=== PATIENT | female | born 2005 | race Two or more races ===

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

== ENCOUNTER 2025-05-08 18:26 | Emergency (ER) | payer OTHER ==
[~2025-05-08] VITALS: Ht 162.6 cm; Wt 50.8 kg
[2025-05-08 18:48] VITALS: TEMP 98.3
[2025-05-08] MEDS ORDERED: LIDOCAINE 5% (PATCH) 1 EA PATCH TP ONE (19:19)
[2025-05-08] MEDS ORDERED: IBUPROFEN 600 MG TABLET ONE (19:19)
[2025-05-08] MEDS ORDERED: METHOCARBAMOL (500MG) 500 MG TABLET ONE (19:20)
[2025-05-08] MEDS: IBUPROFEN 600 MG TABLET PO ONE (19:25)
[2025-05-08] MEDS: METHOCARBAMOL (500MG) 500 MG TABLET PO ONE (19:25)
[2025-05-08] MEDS: LIDOCAINE 5% (PATCH) 1 EA PATCH TP SCH (19:25)
[2025-05-08] MEDS ORDERED: IBUP-1953 PO (19:28)
[2025-05-08] MEDS ORDERED: METH-647 PO (19:28)
[2025-05-08] MEDS ORDERED: HYDR-500 PO (19:28)
[2025-05-08 19:43] VITALS: BP 134/40; O2SAT 99
== END 2025-05-08 19:44 | disposition home or self-care (01) ==
LOC: ER 18:50
DX: S60.212A Contusion of left wrist, initial encounter (principal); F41.9 Anxiety disorder, unspecified; H53.8 Other visual disturbances; R20.2 Paresthesia of skin; R51.9 Headache, unspecified; R53.1 Weakness; M54.6 Pain in thoracic spine; M54.50 Low back pain, unspecified; V43.52XA Car driver injured in collision with other type car in traffic accident, initial encounter; Y93.89 Activity, other specified; Y92.89 Other specified places as the place of occurrence of the external cause; Y99.8 Other external cause status